=== PATIENT | male | born 1995 | race Caucasian/White ===

== ENCOUNTER 2022-11-13 18:12 | Emergency (ER) | payer MEDICAID ==
[~2022-11-13] VITALS: Ht 165.1 cm; Wt 63.5 kg
[2022-11-13 18:36] VITALS: BP 119/60
--- NOTE | 2022-11-13 20:24 | NUR ---
STACI BORREGO explained results and treatment plans.
[2022-11-13] MEDS ORDERED: NAPR-54 PO (20:26)
[2022-11-13 20:36] VITALS: BP 119/60
== END 2022-11-13 20:36 | disposition home or self-care (01) ==
LOC: MED 18:12
DX: S40.012A Contusion of left shoulder, initial encounter (principal); W18.30XA Fall on same level, unspecified, initial encounter; Y93.89 Activity, other specified; Y92.89 Other specified places as the place of occurrence of the external cause; Y99.8 Other external cause status
CPT/HCPCS: 73030; 99283